=== PATIENT | male | born 1965 | race Caucasian/White ===

== ENCOUNTER 2019-10-14 00:22 | Observation (INO) ==
[2019-10-14] MEDS ORDERED: Naloxone 0.4 MG/ML INJ IVP PRN ×2 (01:45→16:44)
[2019-10-14] MEDS ORDERED: *HR* Dextrose 50 % in Water (Syg) 50 ML SYRINGE IVP PRN ×2 (04:25→16:44)
[2019-10-14] MEDS ORDERED: D5% in Water 1,000 ML IVC PRN ×2 (04:25→16:44)
[2019-10-14] MEDS ORDERED: Dextrose Gel 15 GM/37.5 ML TUBE PO PRN ×4 (04:25→16:44)
[2019-10-14] MEDS: 0.9 % Sodium Chloride 1,000 ML IVC SCH ×2 (04:33→12:37)
[2019-10-14 04:53] LABS: Hematocrit 36.5 % (37.5-50.1); Hemoglobin 13.2 g/dL (12.9-16.9); Mean Corpuscular HGB Conc 36.2 g/dL (31.6-35.5); Mean Corpuscular Hemoglobin 32.3 pg (28.0-33.3); Mean Corpuscular Volume 89.2 fL (83.0-100.0); Mean Platelet Volume 10.6 fL (9.4-12.4); Platelet Count 216 K/mcL (140-400); Red Blood Count 4.09 M/mcL (4.19-5.50)
[2019-10-14 05:09] LABS: Prothrombin Time 11.9 Seconds (9.4-12.1)
[2019-10-14 05:12] LABS: Activated Partial Thrombo Time 28.1 Seconds (26.0-36.0)
[2019-10-14 05:27] LABS: BUN/Creatinine Ratio 11 (6-26); Blood Urea Nitrogen 7 mg/dL (6-20); Calcium 8.7 mg/dL (8.6-10.3); Carbon Dioxide 25 mEq/L (23-29); Chloride 103 mEq/L (98-107); Glucose 232 mg/dL (70-105); Osmolality,Calculated 287 (280-300); Potassium 3.1 mEq/L (3.5-5.1); Sodium 136 mEq/L (136-145); eGFR For African Americans > 60 (> 60); eGFR For Non-African Americans > 60 (> 60)
[2019-10-14] MEDS: Insulin LISPRO 300 UNITS/3 ML VIAL SQ SCH ×2 (06:11→12:38)
[2019-10-14] MEDS: Piperacillin/Tazobactam 3.375 GM in 0.9 % Sodium Chloride Mini Bag 100 ML IVPB SCH ×3 (09:24→19:45)
[2019-10-14] MEDS ORDERED: Bupivacaine/EPI 1:200k 0.5%PF 30 ML VIAL ONE (13:18)
[2019-10-14] MEDS ORDERED: *HR* OxyCODONE Immed Rel 5 MG TABLET PO PRN (13:25)
[2019-10-14] MEDS ORDERED: *HR* Promethazine 25 MG/ML VIAL IVP PRN (13:25)
[2019-10-14] MEDS ORDERED: Ondansetron 4 MG/2 ML VIAL IVP ONE ×2 (13:25→16:44)
[2019-10-14] MEDS ORDERED: *HR* HYDROmorphone 2 MG/ML SYRINGE IVP PRN (13:26)
[2019-10-14] MEDS ORDERED: *HR* Propofol 200 MG/20 ML VIAL IVP ONE (13:34)
[2019-10-14] MEDS ORDERED: *HR* FentaNYL (PF) 100 MCG/2 ML VIAL ONE ×2 (13:34→14:20)
[2019-10-14] MEDS ORDERED: Lidocaine -MPF 2% 2 ML VIAL ONE (13:34)
[2019-10-14] MEDS ORDERED: Lidocaine HCL 4 ML Topical Solution (Laryng-O-Jet Kit Sterile Pak) TP ONE (13:34)
[2019-10-14] MEDS: *HR* Labetalol 20 MG/4 ML SYRINGE IVP PRN ×2 (15:06→15:11)
[2019-10-14] MEDS ORDERED: Insulin LISPRO 300 UNITS/3 ML VIAL SQ SCH ×3 (18:00→21:45)
[2019-10-14] MEDS: Potassium Chloride Elixir 20 MEQ/15 ML UDC PO SCH (22:09)
[2019-10-15] MEDS: Piperacillin/Tazobactam 3.375 GM in 0.9 % Sodium Chloride Mini Bag 100 ML IVPB SCH ×2 (00:12→10:18)
[2019-10-15 06:30] LABS: BUN/Creatinine Ratio 8 (6-26); Blood Urea Nitrogen 6 mg/dL (6-20); Calcium 8.6 mg/dL (8.6-10.3); Carbon Dioxide 22 mEq/L (23-29); Chloride 104 mEq/L (98-107); Glucose 324 mg/dL (70-105); Osmolality,Calculated 292 (280-300); Potassium 3.6 mEq/L (3.5-5.1); Sodium 136 mEq/L (136-145); eGFR For African Americans > 60 (> 60); eGFR For Non-African Americans > 60 (> 60)
[2019-10-15 06:41] LABS: Basophils # 0.1 K/mcL (0.0-0.2); Eosinophils # 0.4 K/mcL (0.0-0.6); Eosinophils % 4.8 %; Hematocrit 36.2 % (37.5-50.1); Hemoglobin 12.9 g/dL (12.9-16.9); Immature Granulocytes % 1.3 % (0-4); Immature Platelets 5.8 % (1.1-6.1); Lymphocytes # 2.3 K/mcL (0.6-4.6); Lymphocytes % 29.4 %; Mean Corpuscular HGB Conc 35.6 g/dL (31.6-35.5); Mean Corpuscular Hemoglobin 30.6 pg (28.0-33.3); Mean Corpuscular Volume 85.8 fL (83.0-100.0); Monocytes # 0.7 K/mcL (0.0-1.3); Monocytes % 8.6 %; Neutrophils # 4.4 K/mcL (1.6-8.9); Platelet Count 213 K/mcL (140-400); Red Blood Count 4.22 M/mcL (4.19-5.50); Red Cell Distribution Width 14.3 % (11.5-14.5); Segmented Neutrophils % 54.9 %
[2019-10-15] MEDS ORDERED: Insulin LISPRO 300 UNITS/3 ML VIAL SQ SCH ×2 (07:30)
[2019-10-15] MEDS ORDERED: amLODIPine 5 MG TABLET PO SCH (09:45)
[2019-10-15] MEDS: Potassium Chloride Elixir 20 MEQ/15 ML UDC PO SCH (10:19)
[2019-10-15 10:43] VITALS: BP 144/80
[2019-10-15] MEDS ORDERED: Aminoglycoside Consult 1 EACH MC ONE (13:19)
== END 2019-10-15 13:20 | disposition home or self-care (01) ==
LOC: 3ANU → SUATTDRO 00:58
PROVIDERS: ADMIT Family Medicine; ATTEND Internal Medicine